=== PATIENT | male | born 1960 | race Caucasian/White ===

== ENCOUNTER → 2021-11-03 11:15 | Outpatient (CLI) | payer OTHER, SELFPAY ==
--- NOTE | ~2021-11-03 | XR_ITS ---
XR thoracic spine 2V DATE: 11/03/2021 13:21 INDICATION: Osteoporosis TECHNIQUE: AP, lateral and swimmer views COMPARISON: None FINDINGS: There is diffuse osteopenia. There is minimal levoscoliosis of the upper thoracic spine. No fracture or dislocation or bone destruction of the thoracic spine. The thoracic pedicles are intac t. No paraspinal soft tissue thickening. There is mild degenerative spurring of the thoracic spine, more prominent in the lower thoracic regio n. IMPRESSION: Osteopenia Mild degenerative spurring Reviewed, dictated and finalized at location A. [facility]
== END ==
DX: M81.8 Other osteoporosis without current pathological fracture (principal); M85.88 Other specified disorders of bone density and structure, other site
CPT/HCPCS: 72070

== ENCOUNTER 2022-07-20 09:38 | Outpatient (CLI) | payer OTHER, SELFPAY ==
--- NOTE | ~2022-07-20 | XR_ITS ---
XR chest 2V DATE: 07/20/2022 11:26 INDICATION: Preoperative evaluation. Malignant prostate neoplasm TECHNIQUE: PA and lateral views COMPARISON: None FINDINGS: Normal heart size. No hilar or mediastinal enlargement. No pulmonary infiltrate or consolid ation, pleural effusion or pulmonary vascular congestion or pneumothorax. Osteopenia. IMPRESSION: No active cardiopulmonary disease Reviewed, dictated and finalized at location B.
--- NOTE | 2022-07-20 11:03 | ECG_ITS ---
Measurements Intervals [place] Rate: 58 P: 37 NH: 150 QRS: -5 QRSD: 106 T: 21 QT: 436 QTc: 431 Interpretive Statements SINUS BRADYCARDIA DELAYED PRECORDIAL R/S TRANSITION VOLTAGE CRITERIA FOR LVH BASELINE ARTIFACT- I, II, III, AVR, AVL, AVF BORDERLINE ECG NO PREVIOUS ECG AVAILABLE FOR COMPARISON Electronically Signed On 07-20-2022 12:04:19 CDT by Wyatt Eden D.O.
[2022-07-20 12:11] LABS: Basophils Percent Auto 0.6 % (0.2-1.2); Eosinophils Absolute Auto 0.2 K/mm3 (0-0.3); Eosinophils Percent Auto 3.1 % (0-4.4); Hematocrit 44.9 % (42.0-52.0); Hemoglobin 14.6 g/dL (14.0-18.0); Immature Granulocyte Absolute 0.02 K/mm3 (0.00-0.031); Immature Granulocyte Percent A 0.4 % (0-0.5); Lymphocytes Absolute Auto 1.26 K/mm3 (0.9-3.2); Lymphocytes Percent Auto 24.1 % (18.3-44.2); Mean Corpuscular HGB Conc 32.5 g/dl (32-36); Mean Corpuscular Hemoglobin 31.5 pg (26-34); Mean Corpuscular Volume 96.8 fl (80-100); Mean Platelet Volume 9.3 fl (7.4-10.4); Monocytes Absolute Auto 0.4 K/mm3 (0.1-0.6); Neutrophils Absolute Auto 3.3 K/mm3 (1.3-6.7); Neutrophils Percent Auto 63.8 % (45.5-73.1); Platelet Count Result 279 k/mm3 (150-375); Red Blood Count 4.64 M/mm3 (4.6-6.20); Red Cell Distribution Width 12.9 % (11.5-14.5); White Blood Count 5.2 K/mm3 (4.5-10.0)
[2022-07-20 12:19] LABS: Appearance Urine Slightly Cloudy (Clear); Bilirubin Urine Negative (Negative); Blood Urine Negative (Negative); Color Urine Yellow (Yellow); Glucose Urine UA Negative (Negative); Ketones Urine Negative (Negative); Leukocyte Esterase Ur Negative LEU/UL (Negative); Nitrate Urine Negative (Negative); Protein Urine Negative (Negative); Specific Grav Ur >= 1.030 (1.001-1.035); Urobilinogen Urine 0.2 mg/dL (<2.0); pH Urine 5.5 (5.0-9.0)
[2022-07-20 12:19] LABS: Alanine Aminotransferase 32 U/L (6-50); Albumin Level 4.6 g/dL (3.5-5.1); Alkaline Phosphatase 57 U/L (38-126); Anion Gap 13 mmol/L (8-16); Aspartate Amino Transferase 29 U/L (17-59); Bilirubin,Total 0.7 mg/dL (0.2-1.3); Blood Urea Nitrogen 14 mg/dL (9-20); Calcium 9.7 mg/dL (8.4-10.2); Carbon Dioxide 28 mmol/L (22-30); Chloride 102 mmol/L (98-107); Estimated Glomerular Filt Rate > 60; Glucose 102 mg/dL (65-110); Potassium 4.7 mmol/L (3.4-5.0); Sodium 143 mmol/L (137-145)
[2022-07-20 12:20] LABS: INR 1.1; Prothrombin Time 13.4 Seconds (11.1-14.7)
[2022-07-20 12:21] LABS: Partial Thromboplastin Time 32.7 SECONDS (22.3-36.8)
[2022-07-20 12:25] LABS: Mucus Urine Rare /lpf; RBC Urine 0-2 /hpf (0-2); Squamous Epithelial Cell Urine Rare /hpf (Few); WBC Urine 0-3 /hpf
[2022-07-20 12:35] LABS: Add Urine Microscopic? YES
== END 2022-07-20 09:39 | disposition home or self-care (01) ==
PROVIDERS: PCP Internal Medicine; Visit Provider Urology
DX: C61 Malignant neoplasm of prostate (principal); Z01.818 Encounter for other preprocedural examination; R94.31 Abnormal electrocardiogram [ECG] [EKG]
CPT/HCPCS: 36415; 71046; 80053; 81001; 85025; 85610; 85730; 86850; 86900; 86901; 93005

== ENCOUNTER 2022-07-28 01:30 | Day surgery (SDC) | payer OTHER, SELFPAY ==
[2022-07-20 10:11] VITALS: BMI 29.5
--- NOTE | 2022-07-20 10:45 | PC.NURSE ---
Report to the Outpatient Waiting Room, entrance under the green pavilion located off [facility], at time ___0600____ on date ___07/28/22____. OR Time: __729 . Time changes happen often and if your time is changed the preop area will call you the afternoon before. - You and your visitor will be asked to self-screen and do not enter if you have any COVID symptoms. - Only one visitor and NO children visitors are allowed at this time. - The patient visitor is requested to leave or wait in car when not with patient due to restrictions. - A mask is required within the hospital. Patients may have clear liquids (water, carbonated beverages, clear teas, apple juice) until 3 hours prior to surgery with a maximum of 20 ounces. - No food from midnight until time of surgery - Infants may have breast milk until 4 hours before surgery, formula 6 hours prior to surgery. - Children will be allowed to drink immediately following surgery. If applicable, please bring a bottle or sippy cup to assist with drinking. Juice, water, soda, and popsicles are readily available. For infants on formula, please bring formula the day of surgery. Pacifiers are allowed. Take the following medications with a SIP of water the morning of surgery: ___NONE Medications to discontinue per physician PT STATES ASPIRIN, NSAIDS AND ALL VITAMINS AND SUPPLEMENTS 7 DAYS PRE OP PER DR OHARA Date to take last dose____07/20/22 Please no make-up, nail irish, hairspray, perfume, deodorant, or body powder the day of surgery. No jewelry (including any body piercings) or valuables the day of surgery, leave them at home. Please take a shower or bath the night before, or the morning of, surgery with an antibacterial soap. Wear comfortable, loose fitting clothing. Children are encouraged to wear pajamas. - Jewelry must be removed prior to entering the operating room. Rings and piercings that are not removed may be cut off. - The hospital will not accept responsibility for valuables. - Please leave all valuables, including medications, at home the day of surgery. BOWEL PREP PER DR OHARA If you are going home after surgery, a licensed van cdl driver must drive you home. - NO public transportation without another adult. - We recommend that an adult stay with you for 24 hours following discharge. - We also recommend that you do not drive, make important decision, drink alcoholic beverages, or take any drugs that were not prescribed by your health care provider for at least 24 hours after your discharge time. For Pediatric surgeries, we recommend two adults accompany the child home (only one inside the building at this time). Follow any additional instructions given to you from your surgeon. If you or anyone in your household have experienced Covid symptoms in the past week, please notify your surgeon or the nurse liaison at the phone number below for possible testing. VERBAL AND WRITTEN instructions given to _PATIENT and asked if any additional questions and then verbalized understanding. Patient advised to call surgeon office or pre surgery nurse liaison [phone] if any additional questions.
[2022-07-20 11:02] VITALS: BP 140/79; PULSE 63; RESP 18; TEMP 36.7; O2SAT 98
--- NOTE | 2022-07-25 07:39 | PM.IMHP ---
H&P: HPI History of Present Illness Date/Time: 07/25/22 07:39 Chief Complaint: Prostate cancer Narrative: pleasant 61-year-old male resume found to have prostate cancer in February 2021 after a PSA elevation to 5.0. At that time prostate biopsy revealed just 1 of 13 cores with [place] 3+3=6. This was consistent with an NCCN very low risk cancer and he opted for active surveillance. Although there was no significant PSA progression in April 2022 his confirmatory biopsy showed 2 of 12 cores with cancer. One of these was [place] 3+3=6 but another was 4+4=8. Genomic testing was consistent with a high risk cancer. Prostate volume by ultrasound remains 87 g despite being finasteride. After reconsideration of therapeutic options including radiation therapy its various forms, robotic surgery and ongoing active surveillance he has elected for surgical intervention. He is aware of the risk including, but not limited to, adverse cardiopulmonary events, very to control his cancer, rectal injury, urinary incontinence and erectile dysfunction. Review of Systems Cardiovascular: Cardiovascular: Denies chest pain, Denies lightheadedness, Denies palpitations and Denies dyspnea Respiratory: Respiratory: Denies dyspnea Gastrointestinal: Gastrointestinal: Denies diarrhea, Denies nausea and Denies vomiting Genitourinary: Genitourinary: Denies hematuria and Denies dysuria Endocrine: Endocrine: Denies palpitations PMFSH Social History Social History Smoking packs per day: 1 Smoking cigarettes per day: 20.0 Years smoked: 30 Smoking pack-years: 30.00 Smoking status: Former smoker Tobacco type: cigarettes Smoking end date: 10/30/16 Alcohol intake: current Drinks per week: 21 Spiritual care concerns: No Meds Home Medications and Allergies Home Medications Medication Instructions Recorded Confirmed Type ascorbic acid (vitamin C) 1,000 mg 1 g PO DAILY 07/20/22 07/20/22 History capsule calcium carb 300 mg-D3 800 1 tablet PO DAILY 07/20/22 07/20/22 History unit-mag ox 25 mg-steelscope operator 0.5 mg-amina-Zn tablet (Caltrate + D3 Plus Minerals) cholecalciferol (vitamin D3) 125 125 mcg PO DAILY 07/20/22 07/20/22 History mcg (5,000 unit) tablet finasteride 5 mg tablet 5 mg PO DAILY 07/20/22 07/20/22 History glucosamine sulf dipot 2 cap PO DAILY 07/20/22 07/20/22 History chlr,msm,chond 550 mg-C 30 mg-amina 1 mg capsule (Glucosamine Chondroitin) lutein 20 mg-zeaxanthin 1,000 mcg 1 cap PO DAILY 07/20/22 07/20/22 History capsule omega-3 fatty acids-fish oil 360 1 cap PO DAILY 07/20/22 07/20/22 History mg-1,200 mg capsule (Fish Oil) selenium 100 mcg tablet 100 mcg PO DAILY 07/20/22 07/20/22 History turmeric 500 mg-black pepper 1 cap PO DAILY 07/20/22 07/20/22 History extract 3 mg capsule vitamin B complex 1 cap PO DAILY 07/20/22 07/20/22 History vitamin E 400 unit tablet 450 mg PO DAILY 07/20/22 07/20/22 History Allergies Allergy/AdvReac Type Severity Reaction Status Date / Time Sulfa (Sulfonamide Allergy Unknown Rash AND Unverified 07/20/22 10:13 Antibiotics) ITCHING Exam Const: General: no acute distress Resp: Effort & Inspection: normal respiratory effort GI: Inspection: non-distended GI Palp: No abdominal tenderness and No Guarding due to palpation present (GI) Auscultation: normal bowel sounds Assessment and Plan Assessment and plan (1) Prostate cancer: Code(s): C61 - Malignant neoplasm of prostate Status: Acute Assessment and Plan: Robotic-assisted radical prostatectomy with bilateral pelvic lymphadenectomy
--- NOTE | 2022-07-27 12:05 | WPDANESEPPF ---
Anes - Initial Pre Proc Eval Procedure: Operation Date: 07/28/22 07:30 Proposed Procedures p Robotic Assisted Laparoscopic Prostatectomy with Bilateral Pelvic Lymph Node Dissection - Jose Fallon MD Date/Time: 07/27/22 12:05 Surgeon: Jose Fallon MD Pre Op Diagnosis: prostate cancer Patient Data Age: 61 Gender: M Height: 1.79 m Weight: 94.5 kg Last Vital Signs Temp 98.0 F 07/20/22 11:02 Pulse 63 07/20/22 11:02 Resp 18 07/20/22 11:02 BP 140/79 07/20/22 11:02 Pulse Ox 98 07/20/22 11:02 O2 Del Method Room Air 07/20/22 11:02 Allergies Allergy/AdvReac Type Severity Reaction Status Date / Time Sulfa (Sulfonamide Allergy Unknown Rash AND Verified 07/28/22 06:28 Antibiotics) ITCHING Home Medications Medication Instructions Recorded Confirmed Type ascorbic acid (vitamin C) 1,000 mg 1 g PO DAILY 07/20/22 07/28/22 History capsule calcium carb 300 mg-D3 800 1 tablet PO DAILY 07/20/22 07/28/22 History unit-mag ox 25 mg-copper miner 0.5 mg-amina-Zn tablet (Caltrate + D3 Plus Minerals) cholecalciferol (vitamin D3) 125 125 mcg PO DAILY 07/20/22 07/28/22 History mcg (5,000 unit) tablet finasteride 5 mg tablet 5 mg PO DAILY 07/20/22 07/28/22 History glucosamine sulf dipot 2 cap PO DAILY 07/20/22 07/28/22 History chlr,msm,chond 550 mg-C 30 mg-amina 1 mg capsule (Glucosamine Chondroitin) lutein 20 mg-zeaxanthin 1,000 mcg 1 cap PO DAILY 07/20/22 07/28/22 History capsule omega-3 fatty acids-fish oil 360 1 cap PO DAILY 07/20/22 07/28/22 History mg-1,200 mg capsule (Fish Oil) selenium 100 mcg tablet 100 mcg PO DAILY 07/20/22 07/28/22 History turmeric 500 mg-black pepper 1 cap PO DAILY 07/20/22 07/28/22 History extract 3 mg capsule vitamin B complex 1 cap PO DAILY 07/20/22 07/28/22 History vitamin E 400 unit tablet 450 mg PO DAILY 07/20/22 07/28/22 History Patient hx anesthesia problems: none Family hx anesthesia problems: none Results Review: All pre-operative results and documents have been reviewed as part of the pre-operative evaluation. [facility] Past Medical History Medical History (Updated 07/27/22 @ 12:05 by Owen Castellon MD) Osteoporosis Social History Social History Smoking packs per day: 1 Smoking cigarettes per day: 20.0 Years smoked: 30 Smoking pack-years: 30.00 Smoking status: Former smoker Tobacco type: cigarettes Smoking end date: 10/30/16 Alcohol intake: current Drinks per week: 21 Living arrangements: with family Spiritual care concerns: No Anes - Eval Final PreProcedure Day of Procedure 07/27/22 12:05 Patient weight: overweight Heart: regular rate and rhythm Lungs: clear to auscultation Airway: Mallampati scale class III Neurological: alert and oriented Last oral intake: >/= 8 hours ASA classification: III Emergent: no Anesthetic plan: proceed Anesthesia type and monitoring: general ETT and standard monitoring Results Review: All pre-operative results and documents have been reviewed as part of the pre-operative evaluation. Informed Consent: The patient's anesthetic plan and its attendant risks and benefits were discussed with the patient/family/POA. Questions were solicited and answers provided to the satisfaction of the patient/family/POA.
[2022-07-28] VITALS (14 sets, daily range): BP systolic 117–144; BP diastolic 71–90; PULSE 68–109; RESP 10–18; TEMP 36.2–36.9; O2SAT 93–100
--- NOTE | 2022-07-28 06:26 | WPDHPUPDATE1 ---
History and Physical Update Update Date/Time: 07/28/22 06:26 History and Physical has been reviewed, including an updated exam of the patient. There are NO changes in the patient's condition. Risks, benefits, and alternatives have been discussed and questions answered. Patient agrees to proceed with procedure.
[2022-07-28] MEDS: LACTATED RINGERS 1,000 ML 30 ML IV CONT ×2 (06:39→11:15)
[2022-07-28 06:55] LABS: Partial Thromboplastin Time 33.7 SECONDS (22.3-36.8)
[2022-07-28] MEDS: ceFAZolin 2 GM/D5W 50 ML 2 GM/50 ML BAG IVPB (07:40)
--- NOTE | 2022-07-28 11:04 | W.PM.PROC2 ---
Procedure Note - Detailed Date of Procedure 07/28/22 Pre-op Diagnosis Prostate cancer Post-op Diagnosis Same Procedure Performed Robotic-assisted laparoscopic radical prostatectomy with bilateral pelvic lymphadenectomy Surgeon Jose Fallon MD Description of Procedure The patient was brought to the operative suite, where he was prepped and draped in routine sterile fashion while in a dorsal lithotomy, deep Trendelenburg position. A supraumbilical 10 mm trocar was placed after insufflation of the abdomen with a Veress needle. Three robotic ports were then placed under direct vision. Two of these were placed in the right lower quadrant - 10 cm and 20 cm lateral to, and in line with, the umbilicus. A third robotic trocar was placed 10 cm to the left of the umbilicus, and 20 cm to the left of the umbilicus, a 12 mm standard laparoscopic trocar was placed to be used as an assistant therapy aide port. Lastly, a 5 mm trocar was placed in the left upper quadrant midway between the umbilicus and the left robotic trocar. Attention was then turned to the prostatectomy. I opted for a posterior approach in this patient. An incision was made in the parietal peritoneum along the posterior bladder/posterior prostate about 2 cm above the reflection of the peritoneum over the anterior rectum. The seminal vesicles and vas deferens were immediately identified. Dissection is undertaken in a fashion so as to avoid electrocautery as much as possible, particularly near the tips of the seminal vesicles. Dissection was also carried out in the midline so as to avoid any encounters with the ureters. The vas deferens and the seminal vesicles were dissected in their entirety to the base of the prostate. The plane anterior to Denoviller's fascia, anterior to the rectum and posterior to the prostate was then developed. I then dropped the bladder by incising the anterior parietal peritoneum just lateral to the median umbilical ligaments bilaterally. The bladder was dropped from the anterior abdominal and pelvic wall. The endopelvic fascia was identified and incised bilaterally, allowing for dissection of the posterior-lateral aspect of the prostate. The puboprostatic ligaments were transected near their origin from the posterior pubic ramus. This posterior lateral dissection of the prostate is also undertaken in a fashion so as to avoid electrocautery as much as possible. The dorsal vein of the penis is then secured with an 0-Vicryl ligature. Attention is then turned to the bladder neck. The anterior bladder neck is incised at the vesico-prostatic junction. The previously placed urethral catheter was drawn through the urethrotomy. A very small bladder neck was maintained throughout the remainder of this dissection. The posterior bladder neck was incised in a fashion so as to avoid any injury to the ureteral orifices. Again, the small aperture of the bladder neck was maintained. The previously dissected vas deferens and the seminal vesicles were brought through the posterior bladder neck incision. The lateral prostatic pedicles were then carefully dissected from the lateral aspect of the prostate bilaterally. The prostatic pedicles were secured with Weck clips and transected. The neurovascular bundles were carefully dissected from the posterior-lateral aspect of the prostate. The dorsal vein of the penis was incised with electrocautery. Using cold scissors, the urethra was incised. After withdrawing the previously placed urethral catheter, the posterior urethra was sharply incised, as was the rectalurethralis muscle. Attention was then turned to an extended bilateral pelvic lymphadenectomy. The limits of this dissection were similar bilaterally. Specifically, the limits were the bifurcation of the common iliac vein proximally, the inguinal ligament distally, the obturator nerve posteriorly and the anterior aspect to the external iliac artery laterally. This dissection was undertaken wi
[2022-07-28] MEDS: fentaNYL CITRATE INJ (*CRX) 100 MCG/2 ML VIAL 25 MCG IV PUSH ×2 (12:03→12:37)
--- NOTE | 2022-07-28 13:24 | ADMGEN ---
This patient, Guilherme Ingram, was admitted to Medical Room 253-01. Patient/family oriented to hospital policies and general routines including ID bracelet, bed and alarms, visiting hours, pain management, procedures, bathroom and other care routines, personal items, smoking policy, room service/diet, and visiting hours. Information on how to activate the Rapid Response Team has been discussed. Patient/Family are encouraged to report perceived risks to care and to ask questions if they do not understand what they are told or what they should do.
[2022-07-28] MEDS: LACTATED RINGERS 1,000 ML 125 ML IV CONT (13:39)
[2022-07-29] MEDS: LACTATED RINGERS 1,000 ML 125 ML IV CONT ×2 (00:02→08:06)
[2022-07-29 01:29] VITALS: BP 113/48; PULSE 90; RESP 18; TEMP 36.9; O2SAT 95
[2022-07-29 05:00] VITALS: BP 130/70; PULSE 81; RESP 16; TEMP 36.7; O2SAT 94
[2022-07-29 05:48] LABS: Hematocrit 34.3 % (42.0-52.0); Hemoglobin 11.7 g/dL (14.0-18.0)
[2022-07-29 05:55] LABS: Anion Gap 7 mmol/L (8-16); Blood Urea Nitrogen 10 mg/dL (9-20); Calcium 8.2 mg/dL (8.4-10.2); Carbon Dioxide 26 mmol/L (22-30); Chloride 104 mmol/L (98-107); Estimated CRCL calculation 77 ml/min; Estimated Glomerular Filt Rate > 60; Glucose 114 mg/dL (65-110); Potassium 3.9 mmol/L (3.4-5.0); Sodium 137 mmol/L (137-145)
--- NOTE | 2022-07-29 07:00 | WPDUROPN2 ---
Progress Note: A&P Assessment and Plan (1) Prostate cancer: Code(s): C61 - Malignant neoplasm of prostate Status: Acute Assessment and Plan: Doing well POD #1. Increase diet and ambulation. Home this afternoon if continues to do well. Subjective Subjective Date/Time Seen: 07/29/22 07:00 Slept poorly, otherwise no complaints Review of Systems Cardiovascular: Cardiovascular: Denies chest pain, Denies lightheadedness, Denies palpitations and Denies dyspnea Respiratory: Respiratory: Denies dyspnea Gastrointestinal: Gastrointestinal: Denies diarrhea, Denies nausea and Denies vomiting Genitourinary: Genitourinary: Denies hematuria and Denies dysuria Endocrine: Endocrine: Denies palpitations Exam Const: General: no acute distress Resp: Effort & Inspection: normal respiratory effort GI: Inspection: non-distended GI Palp: No abdominal tenderness and No Guarding due to palpation present (GI) Auscultation: normal bowel sounds Other: Incisions clean and dry Objective Data Vital Signs Vital Signs: Vital Signs - 24 hr 07/28/22 11:15 07/28/22 11:30 07/28/22 11:45 Temperature 97.4 F L Pulse Rate 74 72 68 Respiratory Rate 12 10 L 14 Blood Pressure 131/73 122/76 144/78 H Pulse Oximetry 98 98 100 Oxygen Delivery Simple Face Mask Simple Face Mask Simple Face Mask Oxygen Flow Rate 6 6 6 07/28/22 12:00 07/28/22 12:15 07/28/22 12:30 Temperature Pulse Rate 88 79 78 Respiratory Rate 15 12 15 Blood Pressure 136/79 138/90 125/79 Pulse Oximetry 100 93 98 Oxygen Delivery Room Air Room Air Room Air Oxygen Flow Rate 07/28/22 12:45 07/28/22 13:00 07/28/22 13:20 Temperature 98.0 F Pulse Rate 79 88 98 Respiratory Rate 15 18 14 Blood Pressure 119/71 132/84 131/76 Pulse Oximetry 99 99 98 Oxygen Delivery Room Air Room Air Oxygen Flow Rate 07/28/22 13:35 07/28/22 14:09 07/28/22 15:21 Temperature 98.2 F 98.3 F 98.1 F Pulse Rate 85 96 94 Respiratory Rate 16 14 18 Blood Pressure 120/79 117/75 118/83 Pulse Oximetry 97 96 97 Oxygen Delivery Oxygen Flow Rate 07/28/22 16:08 07/28/22 19:55 07/28/22 21:00 Temperature 98.5 F Pulse Rate 109 H Respiratory Rate 16 Blood Pressure 133/71 Pulse Oximetry 94 Oxygen Delivery Room Air Room Air Oxygen Flow Rate 07/29/22 01:29 Temperature 98.4 F Pulse Rate 90 Respiratory Rate 18 Blood Pressure 113/48 L Pulse Oximetry 95 Oxygen Delivery Oxygen Flow Rate Intake/Output Intake/Output: Intake & Output 07/26/22 07/27/22 07/28/22 07/29/22 23:59 23:59 23:59 23:59 Intake Total 3380 100 Output Total 60 Balance 3320 100 Meds/Results Medications: Active Medications Generic Name Dose Route Start Last Admin Trade Name Freq PRN Reason Stop Dose Admin Hyoscyamine 0.125 mg 07/28/22 13:05 Hyoscyamine Sulfate 0.125 Mg Tablet SUBLINGUAL Q4H PRN Bladder Spasm Lactated Ringer's 1,000 mls @ 125 mls/hr 07/28/22 13:05 07/29/22 00:02 Lr - Lactated Ringers Iv IV CONT 125 mls/hr .Q8H AGUSTINA Administration Acetaminophen 1,000 mg in 100 mls @ 400 mls/hr 07/28/22 18:00 07/29/22 05:27 Ofirmev 1,000 Mg Ivpb IVPB 07/29/22 17:59 400 mls/hr Q6H AGUSTINA Administration Ketorolac Tromethamine 30 mg 07/28/22 13:05 Ketorolac 30 Mg/Ml Vial (*Bkc) IV PUSH 07/29/22 13:04 Q6H PRN Pain Rated 4-6 Levofloxacin 500 mg 07/29/22 09:00 Levofloxacin 500 Mg Tablet PO DAILY AGUSTINA Naloxone HCl 0.1 mg 07/28/22 13:05 Naloxone Hcl 0.4 Mg/Ml Vial IV PUSH Q2M PRN Opiate Reversal Labs Labs: Laboratory Results - last 24 hr 07/29/22 07/29/22 05:20 05:20 Hgb 11.7 L Hct 34.3 L Sodium 137 Potassium 3.9 Chloride 104 Carbon Dioxide 26 Anion Gap 7 L BUN 10 Creatinine 0.90 Estim Creat Clear Calc 77 Estimated GFR > 60 Glucose 114 H Calcium 8.2 L
[2022-07-29] MEDS: levoFLOXacin 500 MG TABLET PO (08:06)
[2022-07-29 09:00] VITALS: BP 120/60; PULSE 100; RESP 16; TEMP 37.2; O2SAT 95
--- NOTE | 2022-07-29 10:25 | WPDANESPN ---
Anes - Prog Note Post-Op Date/Time: 07/29/22 10:25 Cardiovascular status: normal Respiratory status: normal Airway patency: baseline Mental status: baseline Post-Op hydration status: normal Vital Signs: Last Vital Signs Temp 37.2 C 07/29/22 09:00 Pulse 100 07/29/22 09:00 Resp 16 07/29/22 09:00 BP 120/60 07/29/22 09:00 Pulse Ox 95 07/29/22 09:00 O2 Del Method Room Air 07/29/22 08:00 O2 Flow Rate 6 07/28/22 11:45 Pain Score (VAS): 12/09 I/O: Intake & Output 07/28/22 07/29/22 07/29/22 23:59 07:59 15:59 Intake Total 1737 045 8240 Output Total 1200 Balance 1570 -500 1222 Laboratory Tests 07/29/22 05:20 07/29/22 05:20 07/29/22 07/29/22 05:20 05:20 Hgb 11.7 L Hct 34.3 L Sodium 137 Potassium 3.9 Chloride 104 Carbon Dioxide 26 Anion Gap 7 L BUN 10 Creatinine 0.90 Estim Creat Clear Calc 77 Estimated GFR > 60 Glucose 114 H Calcium 8.2 L Post-procedural complaints: none Patient Feedback: Patient satisfied with anesthetic care.
--- NOTE | 2022-07-29 12:30 | PM.DS ---
DS: Admitting Diagnosis Discharge Date 07/29/2022 Admitting Diagnosis Prostate ca. DS: Summary Hospital Course Hospital Course: This patient was admitted on the morning of his planned robotic prostatectomy. This procedure was uneventful, as was his postoperative course. By the evening of the procedure he was sitting at the bedside in tolerating a liquid diet. The following morning he was ambulating freely and tolerating regular food. His catheter drainage remained essentially clear throughout. His postoperative hemoglobin and serum creatinine were unremarkable. At the time of discharge he has been instructed in appropriate care for his Bund[place] catheter with both a leg bag and bedside bag. He will be discharged with plans to follow-up in 1 week with a cystogram. Time Spent with Patient Time attestation: Total time spent providing and/or coordinating discharge services: DS: Data Data Completed and Pending Pending studies at discharge: Pending at discharge 07/28/22 10:50 Surgical [PTH] Routine Labs on day of discharge: Labs from last 24 hours 07/29/22 07/29/22 05:20 05:20 Hgb 11.7 L Hct 34.3 L Sodium 137 Potassium 3.9 Chloride 104 Carbon Dioxide 26 Anion Gap 7 L BUN 10 Creatinine 0.90 Estim Creat Clear Calc 77 Estimated GFR > 60 Glucose 114 H Calcium 8.2 L Discharge Plan Discharge Patient Disposition: Home, Self-Care Discharge Instructions: 1) Bundy catheter -> leg bag / bedside bag at night. 2) No lifting/straining >15lbs. x3 weeks. 3) No driving x1-week. 4) Resume normal, pre-operative diet. 5) My office will contact regarding follow-up in 1-week with cystogram. Stand Alone Forms: General Discharge Instructions Discharge Orders: Discharge Order (Routine); Ordered 07/29/22 Ordered By: Jose Fallon Discharge Medications: New docusate sodium [Colace] 100 mg capsule 100 mg PO DAILY Qty: 30 0RF hydrocodone-acetaminophen 5-325 mg tablet 1 - 2 tablet PO Q6H PRN (Reason: pain) Qty: 30 0RF ciprofloxacin HCl 500 mg tablet 500 mg PO Q12H Qty: 10 0RF hyoscyamine sulfate 0.125 mg tablet 0.125 mg PO Q6H PRN (Reason: bladder spasms) Qty: 20 2RF Held ascorbic acid (vitamin C) 1,000 mg Capsule 1 g PO DAILY Hold Instructions: Resume on 08/03/22. vitamin E 400 unit Tablet 450 mg PO DAILY Hold Instructions: Resume on 08/03/22. Caltrate + D3 Plus Minerals 300 mg-800 unit -25 mg-0.5 mg Tablet 1 tablet PO DAILY Hold Instructions: Resume on 08/03/22. selenium 100 mcg Tablet 100 mcg PO DAILY Hold Instructions: Resume on 08/03/22. Glucosamine Chondroitin 550-30-1 mg Capsule 2 cap PO DAILY Hold Instructions: Resume on 08/03/22. omega-3 fatty acids-fish oil [Fish Oil] 360-1,200 mg Capsule 1 cap PO DAILY Hold Instructions: Resume on 08/03/22. vitamin B complex Capsule 1 cap PO DAILY Hold Instructions: Resume on 08/03/22. cholecalciferol (vitamin D3) 125 mcg (5,000 unit) Tablet 125 mcg PO DAILY Hold Instructions: Resume on 08/03/22. turmeric-turmeric ext-pepper 500-3 mg Capsule 1 cap PO DAILY Hold Instructions: Resume on 08/03/22. Discontinued finasteride 5 mg tablet 5 mg PO DAILY No Action lutein-zeaxanthin 20 mg- 1,000 mcg Capsule 1 cap PO DAILY
[2022-07-29 13:00] VITALS: BP 126/68; PULSE 100; RESP 16; TEMP 36.7; O2SAT 95
== END 2022-07-29 14:50 | disposition home or self-care (01) ==
LOC: ANHSURGERY 06:04 → ANH2MED 13:14
PROVIDERS: PCP Internal Medicine; Visit Provider Urology
PROC: 0VT04ZZ Resection of Prostate, Percutaneous Endoscopic Approach (ICD-10-PCS; CPT 55867; principal; 2022-07-28 07:30)
DX: C61 Malignant neoplasm of prostate (principal); Z87.891 Personal history of nicotine dependence
CPT/HCPCS: 55866; 38571; 36415; 71046; 80048; 80053; 81001; 85014; 85018; 85025; 85610; 85730; 86850; 86900; 86901; 88305; 88309; 88342; 93005; A9270; J0131; J0330; J0690; J1100; J1170; J2250; J2405; J2704; J3010; J7030; J7120; Q9968

== ENCOUNTER 2022-08-05 13:09 | Outpatient (CLI) | payer OTHER, SELFPAY ==
--- NOTE | ~2022-08-05 | XR_ITS ---
EXAMINATION: CYSTOGRAM DATE: 08/05/2022 13:58 INDICATION: Status post prostatectomy TECHNIQUE: Initial drawing in hand radiograph of the pelvis was performed. There was retrograde administration of Omnipaque 350 mixed with saline contrast into patient's existing Bundy catheter. Fluoroscopic cristina ges of the pelvis were obtained. A post-void image was also performed. Fluoroscopy exposure time was 0.4 minutes. A total of 16 fluoroscopic images and a single overhead radiographs were obtained. FINDINGS: [employer] radiograph demonstrate multiple metallic coils projecting over the left and right sides of the pelvis consistent with prior bilateral inguinal hernia repairs. There is normal filling of the bladde r. No evident extraluminal contrast extravasation to suggest bladder leak. IMPRESSION: No bladder leak. Reviewed, dictated and finalized at location A. IMPRESSION: No bladder leak.
== END 2022-08-05 13:10 | disposition home or self-care (01) ==
LOC: ANHIMG 13:13
PROVIDERS: PCP Internal Medicine; Visit Provider Urology
DX: C61 Malignant neoplasm of prostate (principal)
CPT/HCPCS: 51600; 74430; Q9967

== ENCOUNTER 2023-03-30 14:02 | Outpatient (CLI) | payer OTHER, SELFPAY ==
--- NOTE | ~2023-03-30 | PE_ITS ---
EXAMINATION: PET_PETPSMAST_PT DATE: 03/30/2023 16:24 INDICATION: Prostate cancer with elevated PSA level TECHNIQUE: 10.228 mCi of pipflufolastat F-18 (18-F-DCFPyL) was administered i.v. Low dose computed t omography (CT) images were acquired from the base of the brain to the base of the brain to the proxim al thighs for attenuation correction and anatomic localization. Positron emission tomography (PET) im ages were acquired in the same distribution beginning 77 minutes after injection. Images including fu sed PET/CT images were reconstructed in axial, coronal, and sagittal planes. Automated exposure contr ol technique was employed. The dose-length product was 573.23mGy-cm. COMPARISON: None FINDINGS: Head/neck: Typical pattern of symmetric physiologic increased activity in the lacrimal, parotid and submandibula r glands as well as along the mucosa of the nasal and oral cavities, the letty-, naso- and hypopharynx, the glottis and esophagus. Tiny focus of mild uptake with maximal SUV of 3.2 at the medial head of t he left clavicle without evident correlate on CT. No pathologically enlarged cervical lymphadenopathy or suspicious foci of increased uptake in the visualized head or neck. Chest: No suspicious pulmonary nodules, pneumonia, pulmonary edema or pleural effusion. Mild cardiomegaly. N o pericardial effusion. Thoracic aorta is normal in caliber. No pathologically enlarged or PSMA avid thoracic lymphadenopathy. Additional tiny focus of mild uptake with maximal SUV of 2.5 and without ra diologic correlate at the anterolateral left fourth rib. Abdomen/pelvis/proximal thighs: Physiologic renal accumulation and excretion of activity in the kidneys, bladder and along portions o f ureters. Status post prostatectomy. Normal degree and slightly heterogenous pattern of increased up take throughout the liver and spleen without radiologic correlate or dominant PSMA avid lesion. The g allbladder, pancreas and bilateral adrenal glands are normal. Moderate uptake scattered throughout th e bowels with typical duodenal and proximal jejunal predominance and without radiologic correlate, al so likely physiologic. Mild scattered colonic diverticulosis without adjacent from trace stranding to suggest diverticular colitis. Normal appendix. Postoperative change of bilateral inguinal hernia rep airs. There are 6 PSMA small PSMA avid lymph nodes in the deep left pelvis with maximal SUV values be tween. For reference the 2 most intense each measure 4 mm and each with maximal SUV of 14.9 situated between the bladder and the left pubic body and slightly more superolaterally between the bladder and the superior pubic ramus. No other pathologically enlarged or PSMA avid lymphadenopathy in the abdom en or pelvis. IMPRESSION: 1. 6 very small but prominently PSMA avid lymph nodes in the deep left pelvis along the bladder and d istal left ureter consistent with metastatic disease. 2. A couple tiny foci of increased PSMA uptake without evidence of chronic lesion on CT at the medial head of the left clavicle and at the anterolateral left fifth rib with relatively mild uptake but si gnificantly higher than background bone activity and could not exclude early osseous metastatic disea se. Reviewed, dictated and finalized at location A. IMPRESSION: 1. 6 very small but prominently PSMA avid lymph nodes in the deep left pelvis a long the bladder and distal left ureter consistent with metastatic disease. 2. A couple tiny foci of increased PSMA uptake without evidence of chronic lesi on on CT at the medial head of the left clavicle and at the anterolateral left fifth rib with relatively mild uptake but significantly higher than background bone activity and could not exclude early osseous metastatic disease.
== END 2023-03-30 14:03 | disposition home or self-care (01) ==
PROVIDERS: PCP Internal Medicine; Visit Provider Urology
DX: C61 Malignant neoplasm of prostate (principal)
CPT/HCPCS: 78815; A9595